=== PATIENT | female | born 1940 | race Caucasian/White ===

== ENCOUNTER 2017-02-24 12:02 | Inpatient (IN) | payer MEDICARE, MEDICAID ==
[~2017-02-24] VITALS: Ht 157.5 cm; Wt 68.0 kg
[2017-02-24 13:00] LABS: BASOPHILS % 0.8 % (0.0-2.0); EOSINOPHILS % 1.5 % (0.0-5.0); HEMATOCRIT. 32.1 % (36.0-48.0); HEMOGLOBIN. 10.4 g/dL (12.0-16.0); LYMPHOCYTES % 25.5 % (20.0-50.0); MEAN CORPUSCULAR HEMOGLOBIN 27.5 pg (28.0-32.0); MEAN CORPUSCULAR HGB CONC 32.4 g/dL (31.0-37.0); MEAN CORPUSCULAR VOLUME 84.7 fL (81.0-99.0); MEAN PLATELET VOLUME 7.6 fl (7.4-10.4); MONOCYTES % 6.5 % (2.0-8.0); NEUTROPHILS % 65.7 % (40.0-76.0); PLATELET 213 x1000/uL (130-400); RED BLOOD CELL COUNT 3.79 mill/uL (4.2-5.4); RED CELL DISTRIBUTION WIDTH 14.4 % (11.6-14.6); WHITE BLOOD COUNT 11.5 x1000/uL (4.5-11.0)
[2017-02-24 13:06] LABS: CHLORIDE 104 mEq/L (98-107); INDEX HEMOLYSI 1 (1-3); INDEX ICTERIC 1 (1-4); INDEX LIPEMIC 1 (1-3)
[2017-02-24 13:07] LABS: PROTHROMBIN TIME 10.8 sec
[2017-02-24 13:14] LABS: ALANINE AMINOTRANSFERASE 20 IU/L (13-61); ALBUMIN 2.2 g/dL (3.4-5.0); ANION GAP 13; CALCIUM 8.3 mg/dL (8.5-10.1); CARBON DIOXIDE 28 mEq/L (21-32); UREA NITROGEN BLOOD 23 mg/dL (7-21); eGFR 32 mL/min (>60)
[2017-02-24] MEDS ORDERED: SODIUM CHLORIDE 0.9% 1,000 ML IV ONE (14:00)
[2017-02-24] MEDS ORDERED: DEXTROSE 50% WATER 50ML SYRINGE IV PRN (17:45)
[2017-02-24] MEDS ORDERED: NITROGLYCERIN 0.4MG TABLET SL SL PRN (17:45)
[2017-02-24] MEDS ORDERED: ACETAMINOPHEN 325MG TABLET PO PRN (17:45)
[2017-02-24] MEDS ORDERED: ZOLPIDEM TARTRATE 5MG TABLET PO PRN (17:45)
[2017-02-24] MEDS ORDERED: ONDANSETRON HCL 4MG/2ML VIAL IV PRN (17:45)
[2017-02-24] MEDS ORDERED: GUAIFENESIN 200MG/10ML SUGAR FREE UDC PO PRN (17:45)
[2017-02-24] MEDS ORDERED: MAGNESIUM/ALUMINUM HYDROXIDE/SIMETHICONE 30ML UDC PO PRN (17:45)
[2017-02-24] MEDS ORDERED: IPRATROPIUM/ALBUTEROL 0.5-3(2.5)MG/3ML NEB INH PRN (19:13)
[2017-02-24] MEDS ORDERED: NA PHOS,M-B/NA PHOS,DI-BA ENEMA 118ML PR PRN (19:14)
[2017-02-24] MEDS ORDERED: LEVOFLOXACIN 500MG PREMIX 100 ML IV SCH (20:30)
[2017-02-24] MEDS: INSULIN LISPRO 100 UNITS/ML SUBCUT SCH ×2 (20:32→23:07)
[2017-02-24] MEDS: BLOOD SUGAR DIAGNOSTIC STRIP TEST SCH (21:00)
[2017-02-24 21:05] LABS: T4 FREE 1.06 ng/dL (0.76-1.46)
[2017-02-24 21:07] LABS: THYROID STIMULATING HORMONE 4.4 uIU/mL (0.36-3.74)
[2017-02-24 21:20] VITALS: BP_SYST 167; BP_SYST 179; BP_DIAS 75
[2017-02-24] MEDS: SODIUM CHLORIDE 0.9% 1,000 ML IV SCH (23:05)
[2017-02-25] VITALS: BP 184/77
[2017-02-25 03:10] LABS: CREATINE KINASE 67 IU/L (26-192); CREATINE KINASE MB FRACTION 1.8 ng/mL (0.5-3.6); TROPONIN I < 0.02 ng/mL (0.00-0.04)
[2017-02-25 04:00] VITALS: BP 178/79
[2017-02-25 04:19] LABS: CLARITY URINE CLEAR (CLEAR); COLOR URINE YELLOW (YELLOW); GLUCOSE URINE TRACE (NEGATIVE); KETONES URINE NEGATIVE (NEGATIVE); LEUKOCYTE ESTERASE URINE NEGATIVE (NEGATIVE); NITRITE URINE NEGATIVE (NEGATIVE); OCCULT BLOOD URINE NEGATIVE (NEGATIVE); PH URINE 7.5 (4.5-8.0); PROTEIN URINE 3+ (NEGATIVE); SPECIFIC GRAVITY URINE 1.009 (1.005-1.030); UROBILINOGEN URINE 0.2 E.U./dL (0.2-1.0)
[2017-02-25] MEDS: CLONIDINE 0.1MG TABLET PO PRN ×3 (05:08→21:20)
[2017-02-25 05:48] LABS: BACTERIA URINE NONE SEEN; RBC URINE NONE SEEN /hpf (0-2); SQUAMOUS EPITHELIAL CELL URINE NONE SEEN /lpf (RARE/1+); WBC URINE 0-2 /hpf (0-2)
[2017-02-25] MEDS: BLOOD SUGAR DIAGNOSTIC STRIP TEST SCH ×4 (06:16→20:14)
[2017-02-25] MEDS: INSULIN LISPRO 100 UNITS/ML SUBCUT SCH ×4 (06:18→21:24)
[2017-02-25 08:00] VITALS: BP 152/68
[2017-02-25 08:19] LABS: CREATINE KINASE 63 IU/L (26-192); INDEX HEMOLYSI 1 (1-3); TROPONIN I < 0.02 ng/mL (0.00-0.04)
[2017-02-25] MEDS: ASPIRIN 325MG EC TABLET PO SCH (09:25)
[2017-02-25] MEDS: PANTOPRAZOLE SODIUM 40 MG/VIAL IV SCH (09:25)
[2017-02-25] MEDS: ENOXAPARIN 30MG/0.3ML SYR SUBCUT SCH (09:26)
[2017-02-25] MEDS: SODIUM CHLORIDE 0.9% 1,000 ML IV SCH (11:30)
[2017-02-25 11:38] VITALS: BP 168/68
[2017-02-25 13:00] LABS: HEMATOCRIT. 32.8 % (36.0-48.0); HEMOGLOBIN. 10.7 g/dL (12.0-16.0); MEAN CORPUSCULAR HEMOGLOBIN 27.6 pg (28.0-32.0); MEAN CORPUSCULAR HGB CONC 32.6 g/dL (31.0-37.0); MEAN CORPUSCULAR VOLUME 84.5 fL (81.0-99.0); MEAN PLATELET VOLUME 8.3 fl (7.4-10.4); PLATELET 207 x1000/uL (130-400); RED BLOOD CELL COUNT 3.88 mill/uL (4.2-5.4); RED CELL DISTRIBUTION WIDTH 14.9 % (11.6-14.6); WHITE BLOOD COUNT 8.9 x1000/uL (4.5-11.0)
[2017-02-25 13:03] LABS: DIFFERENTIAL COMMENT 1
[2017-02-25 14:28] LABS: ALANINE AMINOTRANSFERASE 22 IU/L (13-61); ALBUMIN 2.2 g/dL (3.4-5.0); ANION GAP 13; CALCIUM 8.4 mg/dL (8.5-10.1); CARBON DIOXIDE 26 mEq/L (21-32); CHLORIDE 102 mEq/L (98-107); INDEX HEMOLYSI 1 (1-3); INDEX ICTERIC 1 (1-4); INDEX LIPEMIC 1 (1-3); UREA NITROGEN BLOOD 21 mg/dL (7-21); eGFR 37 mL/min (>60)
[2017-02-25 15:51] VITALS: BP 164/67
[2017-02-25 16:21] LABS: FOLIC ACID (FOLATE) SERUM 19.4 ng/mL (>5.38)
[2017-02-25 16:50] LABS: PLATELET ESTIMATE NORMAL
[2017-02-25 20:00] VITALS: BP 188/74
[2017-02-25] MEDS ORDERED: LEVOFLOXACIN 250MG PREMIX 50 ML IV SCH (21:00)
[2017-02-25] MEDS: ATORVASTATIN CALCIUM 20MG TABLET PO SCH (21:19)
[2017-02-25] MEDS: LEVOFLOXACIN 250MG PREMIX 50 ML IV SCH (22:00)
[2017-02-26] VITALS: BP 169/77
[2017-02-26 04:00] VITALS: BP 170/81
[2017-02-26] MEDS: CLONIDINE 0.1MG TABLET PO PRN ×2 (04:32→12:32)
[2017-02-26] MEDS: TRAMADOL 50MG TABLET PO PRN ×3 (04:35→20:29)
[2017-02-26] MEDS: BLOOD SUGAR DIAGNOSTIC STRIP TEST SCH ×4 (05:56→20:21)
[2017-02-26] MEDS: INSULIN LISPRO 100 UNITS/ML SUBCUT SCH ×4 (06:27→20:21)
[2017-02-26 08:00] VITALS: BP 180/71
[2017-02-26] MEDS: PANTOPRAZOLE SODIUM 40 MG/VIAL IV SCH (08:48)
[2017-02-26] MEDS: ENOXAPARIN 30MG/0.3ML SYR SUBCUT SCH (08:48)
[2017-02-26] MEDS: ASPIRIN 325MG EC TABLET PO SCH (08:48)
[2017-02-26] MEDS: AMLODIPINE 10MG TABLET PO SCH (09:51)
[2017-02-26] MEDS: INSULIN DETEMIR UD 100 UNITS/ML SYR SUBCUT SCH (11:08)
[2017-02-26 12:00] VITALS: BP 169/69
[2017-02-26 16:20] VITALS: BP 109/60
[2017-02-26 20:00] VITALS: BP 122/59
[2017-02-26] MEDS: ATORVASTATIN CALCIUM 20MG TABLET PO SCH (20:28)
[2017-02-26] MEDS: LEVOFLOXACIN 250MG PREMIX 50 ML IV SCH (22:18)
[2017-02-27] VITALS: BP 124/59
[2017-02-27 04:00] VITALS: BP 137/59
[2017-02-27] MEDS: BLOOD SUGAR DIAGNOSTIC STRIP TEST SCH ×2 (07:19→12:28)
[2017-02-27] MEDS: INSULIN LISPRO 100 UNITS/ML SUBCUT SCH ×2 (07:19→12:35)
[2017-02-27 07:33] VITALS: BP 144/61
[2017-02-27] MEDS: ASPIRIN 325MG EC TABLET PO SCH (08:53)
[2017-02-27] MEDS: AMLODIPINE 10MG TABLET PO SCH (08:53)
[2017-02-27] MEDS: ENOXAPARIN 30MG/0.3ML SYR SUBCUT SCH (08:54)
[2017-02-27] MEDS ORDERED: FAMOTIDINE 20MG TABLET PO SCH (09:00)
[2017-02-27 10:42] VITALS: BP 130/65
[2017-02-27] MEDS: INSULIN DETEMIR UD 100 UNITS/ML SYR SUBCUT SCH (10:49)
[2017-02-27] MEDS ORDERED: LEVOFLOXACIN 250MG TABLET PO SCH (11:00)
[2017-02-27 11:56] VITALS: BP 151/62
== END 2017-02-27 14:00 | disposition home or self-care (01) | DRG 70 ==
LOC: ER 12:06 → SUPCPDRO 16:14 → 8WST 16:16
PROVIDERS: ADMIT Internal Medicine; ATTEND Internal Medicine
DX: G93.40 Encephalopathy, unspecified (principal); N17.0 Acute kidney failure with tubular necrosis; E43 Unspecified severe protein-calorie malnutrition; D63.8 Anemia in other chronic diseases classified elsewhere; E03.9 Hypothyroidism, unspecified; E11.9 Type 2 diabetes mellitus without complications; E78.00 Pure hypercholesterolemia, unspecified; E86.0 Dehydration; I10 Essential (primary) hypertension; Z79.4 Long term (current) use of insulin; Z68.27 Body mass index [BMI] 27.0-27.9, adult
CPT/HCPCS: 36415; 70450; 71010; 80053; 80061; 81001; 82550; 82553; 82607; 82746; 82962; 83036; 83540; 83550; 83605; 84439; 84443; 84484; 85025; 85610; 87070; 87086; 87205; 93005; 93306; 93970; 96361; 96372; 96374; 97116; 97162; 99285; C1893; C9113; J1650; J1815; J1956; J7030

== ENCOUNTER 2017-05-28 16:47 | Inpatient (IN) | payer MEDICARE, MEDICAID ==
[~2017-05-28] VITALS: Ht 154.9 cm; Wt 72.6 kg
[2017-05-28 18:59] LABS: BASOPHILS % 0.7 % (0.0-2.0); EOSINOPHILS % 3.1 % (0.0-5.0); HEMOGLOBIN. 10.2 g/dL (12.0-16.0); LYMPHOCYTES % 36.1 % (20.0-50.0); MEAN CORPUSCULAR HEMOGLOBIN 26.8 pg (28.0-32.0); MEAN CORPUSCULAR VOLUME 83.6 fL (81.0-99.0); MEAN PLATELET VOLUME 7.9 fl (7.4-10.4); MONOCYTES % 7.1 % (2.0-8.0); PLATELET 229 x1000/uL (130-400); RED BLOOD CELL COUNT 3.83 mill/uL (4.2-5.4)
[2017-05-28 19:07] LABS: PARTIAL THROMBOPLASTIN TIME 31.3 sec (24.0-34.0); PROTHROMBIN TIME 10.4 sec
[2017-05-28 19:15] LABS: CARBON DIOXIDE 26 mEq/L (21-32); CHLORIDE 102 mEq/L (98-107); TROPONIN I < 0.02 ng/mL (0.00-0.04)
[2017-05-28] MEDS ORDERED: INSULIN REGULAR (HUMULIN R) 300UNITS/3ML SUBCUT NR (21:30)
[2017-05-28] MEDS ORDERED: NA PHOS,M-B/NA PHOS,DI-BA ENEMA 118ML PR PRN (23:15)
[2017-05-28] MEDS ORDERED: GUAIFENESIN 200MG/10ML SUGAR FREE UDC PO PRN (23:15)
[2017-05-28] MEDS ORDERED: DIPHENHYDRAMINE 50MG/ML VIAL IV PRN (23:15)
[2017-05-28] MEDS ORDERED: ONDANSETRON HCL 4MG/2ML VIAL IV PRN (23:15)
[2017-05-28] MEDS ORDERED: HYDROMORPHONE HCL/PF 2MG/ML CPJ IV PRN (23:15)
[2017-05-28] MEDS ORDERED: IPRATROPIUM/ALBUTEROL 0.5-3(2.5)MG/3ML NEB INH PRN (23:15)
[2017-05-28] MEDS ORDERED: LORAZEPAM 2MG/ML CPJ IV PRN (23:15)
[2017-05-28] MEDS ORDERED: ACETAMINOPHEN 325MG TABLET PO PRN (23:15)
[2017-05-28] MEDS ORDERED: MAGNESIUM/ALUMINUM HYDROXIDE/SIMETHICONE 30ML UDC PO PRN (23:15)
[2017-05-29] MEDS: CLONIDINE 0.1MG TABLET PO PRN ×2 (03:22→21:34)
[2017-05-29] MEDS ORDERED: DEXTROSE 50% WATER 50ML SYRINGE IV PRN (04:15)
[2017-05-29] MEDS ORDERED: SODIUM CHLORIDE 0.45% 1,000 ML IV SCH (04:16)
[2017-05-29 04:25] VITALS: BP 186/73
[2017-05-29 04:32] VITALS: BP 186/73
[2017-05-29] MEDS: HYDROCODONE/ACETAMINOPHEN 5/325MG TABLET PO PRN ×2 (04:37→09:02)
[2017-05-29 06:43] LABS: BASOPHILS % 0.5 % (0.0-2.0); EOSINOPHILS % 2.9 % (0.0-5.0); HEMATOCRIT. 31.8 % (36.0-48.0); HEMOGLOBIN. 10.5 g/dL (12.0-16.0); LYMPHOCYTES % 35.8 % (20.0-50.0); MEAN CORPUSCULAR HEMOGLOBIN 27.2 pg (28.0-32.0); MEAN CORPUSCULAR VOLUME 82.5 fL (81.0-99.0); MEAN PLATELET VOLUME 7.9 fl (7.4-10.4); MONOCYTES % 8.7 % (2.0-8.0); NEUTROPHILS % 52.1 % (40.0-76.0); PLATELET 242 x1000/uL (130-400); RED BLOOD CELL COUNT 3.86 mill/uL (4.2-5.4); RED CELL DISTRIBUTION WIDTH 15.6 % (11.6-14.6)
[2017-05-29 07:14] LABS: CHLORIDE 102 mEq/L (98-107)
[2017-05-29 07:30] LABS: CARBON DIOXIDE 27 mEq/L (21-32); HDL CHOLESTEROL 35 mg/dL (40-59); LDL CHOLESTEROL 141 mg/dL (5-100); T4 FREE 1.06 ng/dL (0.76-1.46); TROPONIN I < 0.02 ng/mL (0.00-0.04)
[2017-05-29 08:00] VITALS: BP 146/80
[2017-05-29] MEDS: BLOOD SUGAR DIAGNOSTIC STRIP TEST SCH ×4 (08:14→21:34)
[2017-05-29] MEDS ORDERED: SODIUM CHLORIDE 0.9% 1,000 ML IV SCH (09:00)
[2017-05-29] MEDS: ENOXAPARIN 40MG/0.4ML SYR SUBCUT SCH (09:00)
[2017-05-29] MEDS: DOCUSATE SODIUM 100MG CAPSULE PO PRN (09:01)
[2017-05-29] MEDS: ASPIRIN 81MG EC TABLET PO SCH (09:01)
[2017-05-29] MEDS: INSULIN LISPRO 100 UNITS/ML SUBCUT SCH ×4 (09:04→21:47)
[2017-05-29 10:04] LABS: T4 FREE 1.05 ng/dL (0.76-1.46)
[2017-05-29 12:00] VITALS: BP 145/60
[2017-05-29 15:38] LABS: CREATINE KINASE 53 IU/L (26-192); TROPONIN I < 0.02 ng/mL (0.00-0.04)
[2017-05-29 16:00] VITALS: BP 165/83
[2017-05-29 20:00] VITALS: BP 168/75
[2017-05-29 23:18] LABS: CREATINE KINASE MB FRACTION 1.4 ng/mL (0.5-3.6)
[2017-05-29] MEDS: SODIUM CHLORIDE 0.9% 1,000 ML IV SCH (23:31)
[2017-05-30] VITALS: BP 182/78
[2017-05-30] MEDS: BENAZEPRIL 10MG TABLET PO SCH ×3 (01:01→18:32)
[2017-05-30 04:00] VITALS: BP 186/66
[2017-05-30] MEDS: SODIUM CHLORIDE 0.9% 1,000 ML IV SCH (05:52)
[2017-05-30 06:27] LABS: BASOPHILS % 0.9 % (0.0-2.0); EOSINOPHILS % 2.7 % (0.0-5.0); HEMOGLOBIN. 10.7 g/dL (12.0-16.0); LYMPHOCYTES % 33.4 % (20.0-50.0); MEAN CORPUSCULAR HEMOGLOBIN 26.9 pg (28.0-32.0); MEAN CORPUSCULAR VOLUME 82.6 fL (81.0-99.0); MEAN PLATELET VOLUME 7.9 fl (7.4-10.4); MONOCYTES % 7.7 % (2.0-8.0); NEUTROPHILS % 55.3 % (40.0-76.0); PLATELET 232 x1000/uL (130-400); RED CELL DISTRIBUTION WIDTH 16.1 % (11.6-14.6)
[2017-05-30] MEDS: BLOOD SUGAR DIAGNOSTIC STRIP TEST SCH ×4 (06:28→20:42)
[2017-05-30] MEDS: CLONIDINE 0.1MG TABLET PO PRN ×2 (06:28→11:45)
[2017-05-30 06:58] LABS: CLARITY URINE CLEAR (CLEAR); COLOR URINE YELLOW (YELLOW); GLUCOSE URINE 1+ (NEGATIVE); KETONES URINE NEGATIVE (NEGATIVE); LEUKOCYTE ESTERASE URINE NEGATIVE (NEGATIVE); NITRITE URINE NEGATIVE (NEGATIVE); OCCULT BLOOD URINE NEGATIVE (NEGATIVE); PROTEIN URINE 3+ (NEGATIVE); UROBILINOGEN URINE 0.2 E.U./dL (0.2-1.0)
[2017-05-30 07:28] LABS: CARBON DIOXIDE 26 mEq/L (21-32); CHLORIDE 102 mEq/L (98-107)
[2017-05-30 07:34] LABS: CREATINE KINASE 41 IU/L (26-192); CREATINE KINASE MB FRACTION 0.8 ng/mL (0.5-3.6)
[2017-05-30 08:00] VITALS: BP 175/70
[2017-05-30] MEDS: ASPIRIN 81MG EC TABLET PO SCH (08:34)
[2017-05-30] MEDS: ENOXAPARIN 40MG/0.4ML SYR SUBCUT SCH (08:35)
[2017-05-30] MEDS: INSULIN LISPRO 100 UNITS/ML SUBCUT SCH ×4 (08:36→20:54)
[2017-05-30] MEDS ORDERED: BENAZEPRIL 10MG TABLET PO SCH (09:00)
[2017-05-30 11:59] VITALS: BP 199/77
[2017-05-30 16:00] VITALS: BP 191/72
[2017-05-30] MEDS: HYDRALAZINE HCL 50MG TABLET PO SCH ×2 (18:28→20:49)
[2017-05-30 20:00] VITALS: BP 167/76
[2017-05-30] MEDS: DOCUSATE SODIUM 100MG CAPSULE PO PRN (20:41)
[2017-05-30] MEDS: HYDROCODONE/ACETAMINOPHEN 5/325MG TABLET PO PRN (20:41)
[2017-05-30] MEDS: CLONIDINE 0.3MG TABLET PO PRN (20:52)
[2017-05-31] VITALS (7 sets, daily range): BP systolic 141–182; BP diastolic 58–81
[2017-05-31] MEDS: HYDRALAZINE HCL 50MG TABLET PO SCH ×3 (06:04→21:07)
[2017-05-31] MEDS: BLOOD SUGAR DIAGNOSTIC STRIP TEST SCH ×4 (06:05→21:07)
[2017-05-31 08:05] LABS: BASOPHILS % 0.7 % (0.0-2.0); EOSINOPHILS % 2.7 % (0.0-5.0); HEMATOCRIT. 31.6 % (36.0-48.0); HEMOGLOBIN. 10.5 g/dL (12.0-16.0); LYMPHOCYTES % 34.5 % (20.0-50.0); MEAN CORPUSCULAR HEMOGLOBIN 27.3 pg (28.0-32.0); MEAN PLATELET VOLUME 8.3 fl (7.4-10.4); NEUTROPHILS % 54.1 % (40.0-76.0); PLATELET 210 x1000/uL (130-400); RED BLOOD CELL COUNT 3.85 mill/uL (4.2-5.4); RED CELL DISTRIBUTION WIDTH 15.5 % (11.6-14.6)
[2017-05-31] MEDS: INSULIN LISPRO 100 UNITS/ML SUBCUT SCH ×4 (08:41→21:15)
[2017-05-31] MEDS: BENAZEPRIL 10MG TABLET PO SCH ×2 (08:42→16:58)
[2017-05-31] MEDS: ASPIRIN 81MG EC TABLET PO SCH (08:42)
[2017-05-31] MEDS: ENOXAPARIN 40MG/0.4ML SYR SUBCUT SCH (08:43)
[2017-05-31] MEDS ORDERED: LORAZEPAM 1MG TABLET PO NR (14:15)
[2017-05-31] MEDS: SODIUM CHLORIDE 0.9% 1,000 ML IV SCH (21:07)
[2017-06-01] VITALS: BP 168/67
[2017-06-01] MEDS: CLONIDINE 0.3MG TABLET PO PRN (01:23)
[2017-06-01] MEDS ORDERED: INSULIN DETEMIR UD 100 UNITS/ML SYR SUBCUT NR (01:30)
[2017-06-01 04:00] VITALS: BP 178/95
[2017-06-01] MEDS: HYDRALAZINE HCL 50MG TABLET PO SCH ×2 (05:52→14:55)
[2017-06-01] MEDS: BLOOD SUGAR DIAGNOSTIC STRIP TEST SCH ×2 (06:01→12:40)
[2017-06-01 08:00] VITALS: BP 150/57
[2017-06-01] MEDS: ASPIRIN 81MG EC TABLET PO SCH (08:46)
[2017-06-01] MEDS: ENOXAPARIN 40MG/0.4ML SYR SUBCUT SCH (08:46)
[2017-06-01] MEDS: INSULIN LISPRO 100 UNITS/ML SUBCUT SCH ×2 (08:53→13:10)
[2017-06-01] MEDS ORDERED: BENAZEPRIL 10MG TABLET PO SCH (09:00)
[2017-06-01 12:00] VITALS: BP 147/66
[2017-06-01 13:30] VITALS: BP 145/61
[2017-06-01] MEDS ORDERED: INSULIN DETEMIR UD 100 UNITS/ML SYR SUBCUT SCH (22:00)
== END 2017-06-01 15:09 | disposition home or self-care (01) | DRG 682 ==
LOC: ER 17:08 → 7WST 23:08 → EDBEDREQ 23:11 → EDBEDREQTM 23:11 → ENRESERV 05-29 02:26
PROVIDERS: ADMIT Internal Medicine; ATTEND Internal Medicine
DX: N17.0 Acute kidney failure with tubular necrosis (principal); G93.41 Metabolic encephalopathy; I13.0 Hypertensive heart and chronic kidney disease with heart failure and stage 1 through stage 4 chronic kidney disease, or unspecified chronic kidney disease; R55 Syncope and collapse; I50.9 Heart failure, unspecified; E86.0 Dehydration; E11.65 Type 2 diabetes mellitus with hyperglycemia; D64.9 Anemia, unspecified; E66.9 Obesity, unspecified; E03.9 Hypothyroidism, unspecified; E11.22 Type 2 diabetes mellitus with diabetic chronic kidney disease; E78.00 Pure hypercholesterolemia, unspecified; E78.5 Hyperlipidemia, unspecified; N18.9 Chronic kidney disease, unspecified; M19.90 Unspecified osteoarthritis, unspecified site; E11.42 Type 2 diabetes mellitus with diabetic polyneuropathy; E11.21 Type 2 diabetes mellitus with diabetic nephropathy; Z68.30 Body mass index [BMI] 30.0-30.9, adult
CPT/HCPCS: 36415; 70450; 71010; 76770; 80048; 80053; 80061; 81001; 82550; 82553; 82962; 83036; 83880; 84439; 84443; 84484; 85025; 85379; 85610; 85730; 93005; 93306; 93970; 97162; 97166; 99285; J1650; J1815; J7030

== ENCOUNTER 2018-05-07 19:45 | Inpatient (IN) | payer MEDICARE, MEDICAID ==
[~2018-05-07] VITALS: Ht 147.3 cm; Wt 70.8 kg
[2018-05-07] MEDS ORDERED: ONDANSETRON HCL 4MG/2ML VIAL IV STA (20:04)
[2018-05-07] MEDS ORDERED: MORPHINE SULFATE 4 MG/ML CPJ (NOT FOR IM USE) IV STA (20:04)
[2018-05-07 20:39] LABS: CHLORIDE 86 mEq/L (98-107)
[2018-05-07 20:43] LABS: BASOPHILS % 0.1 % (0.0-2.0); HEMOGLOBIN. 10.5 g/dL (12.0-16.0); MEAN CORPUSCULAR HEMOGLOBIN 28.2 pg (28.0-32.0); MEAN CORPUSCULAR VOLUME 91.8 fL (81.0-99.0); MEAN PLATELET VOLUME 8.8 fl (7.4-10.4); MONOCYTES % 3.8 % (2.0-8.0); NEUTROPHILS % 86.1 % (40.0-76.0); PLATELET 229 x1000/uL (130-400); RED BLOOD CELL COUNT 3.71 mill/uL (4.2-5.4); RED CELL DISTRIBUTION WIDTH 19.3 % (11.6-14.6)
[2018-05-07 20:48] LABS: PROTHROMBIN TIME 10.7 sec (9.4-11.6)
[2018-05-07] MEDS ORDERED: INSULIN REGULAR (DRIP) 100 UNITS in SODIUM CHLORIDE 0.9% 100 ML IV NR (21:30)
[2018-05-07 21:47] LABS: BG BASE EXCESS -5.8 mmol/L (-2.0-2.0); BG CARBOXYHEMOGLOBIN 0.5 % (0.5-1.5); BG DEOXYHEMOGLOBIN 4.3 % (0.0-5.0); BG FRACTION INSPIRED OXYGEN 21; BG METHEMOGLOBIN 0.2 % (0.0-1.5); BG OXYGEN SATURATION 95.7 % (92.0-98.5); BG PCO2 29.8 mmHg (35.0-45.0); BG PH 7.398 (7.350-7.450); BG SAMPLE SITE RIGHT BRACHIAL; BG TOTAL HEMOGLOBIN 11.6 g/dL (12.0-18.0); BG VENT MODE ROOM AIR
[2018-05-07] MEDS ORDERED: SODIUM CHLORIDE 0.9% 1,000 ML IV ONE ×2 (21:57→22:03)
[2018-05-07] MEDS ORDERED: PIPERACILLIN/TAZ 3.375G PREMIX 50 ML IV ONE (22:00)
[2018-05-07] MEDS ORDERED: FENTANYL CITRATE/PF 50MCG/ML 2ML VIAL ONE (22:53)
[2018-05-07] MEDS ORDERED: ROCURONIUM BROMIDE 10MG/ML VIAL 5ML IV ONE (22:53)
[2018-05-07] MEDS ORDERED: PROPOFOL 200MG/20ML VIAL IV ONE (22:53)
[2018-05-07] MEDS ORDERED: PHENYLEPHRINE HCL 10 MG/ML 1ML (IV VIAL) IV ONE (23:02)
[2018-05-07] MEDS ORDERED: MIDAZOLAM HCL 2 MG/2 ML VIAL ONE (23:13)
[2018-05-07] MEDS ORDERED: MORPHINE SULFATE 4 MG/ML CPJ (NOT FOR IM USE) IV PRN (23:15)
[2018-05-08] VITALS (81 sets, daily range): BP systolic 37–149; BP diastolic 22–110
[2018-05-08] MEDS ORDERED: ROCURONIUM BROMIDE 10MG/ML VIAL 5ML IV ONE (00:10)
[2018-05-08] MEDS ORDERED: SKIN ADHESIVE 0.7 GM EA TOP ONE ×2 (00:27→00:30)
[2018-05-08 00:43] LABS: PHOSPHORUS 3.8 mg/dL (2.5-4.9)
[2018-05-08] MEDS ORDERED: PROPOFOL 10MG/ML 100ML 100 ML IV SCH (01:15)
[2018-05-08 01:56] LABS: BG BASE EXCESS -14.5 mmol/L (-2.0-2.0); BG CARBOXYHEMOGLOBIN 0.3 % (0.5-1.5); BG DEOXYHEMOGLOBIN 0.4 % (0.0-5.0); BG FRACTION INSPIRED OXYGEN 100; BG HCO3 ACT 10.9 mmol/L (22.0-26.0); BG METHEMOGLOBIN 0.3 % (0.0-1.5); BG OXYGEN SATURATION 99.6 % (92.0-98.5); BG PCO2 24.2 mmHg (35.0-45.0); BG PO2 515.9 mmHg (75.0-100.0); BG SAMPLE SITE A-LINE; BG TIDAL VOLUME(mL) 500 mL; BG TOTAL HEMOGLOBIN 9.8 g/dL (12.0-18.0); BG VENT MODE VENT - A/C; BG VENT RATE 12 set
[2018-05-08] MEDS ORDERED: SODIUM BICARBONATE 8.4% 1 MEQ/ML 50ML SYR IV NR (02:15)
[2018-05-08] MEDS ORDERED: INSULIN REGULAR (DRIP) 100 UNITS in SODIUM CHLORIDE 0.9% 99 ML IV PRN (03:15)
[2018-05-08 03:51] LABS: PHOSPHORUS 3.9 mg/dL (2.5-4.9)
[2018-05-08] MEDS ORDERED: BLOOD SUGAR DIAGNOSTIC STRIP TEST SCH (04:15)
[2018-05-08] MEDS ORDERED: DEXTROSE 50% WATER 50ML SYRINGE IV PRN ×2 (04:15)
[2018-05-08] MEDS ORDERED: ONDANSETRON HCL 4MG/2ML VIAL IV PRN (04:45)
[2018-05-08] MEDS ORDERED: HYDROMORPHONE HCL/PF 2MG/ML CPJ IV PRN (04:45)
[2018-05-08] MEDS: DEXT 5%/0.9% NACL 1,000 ML IV SCH ×2 (05:02→20:19)
[2018-05-08 07:00] LABS: BASOPHILS % 0.3 % (0.0-2.0); HEMATOCRIT. 30.1 % (36.0-48.0); HEMOGLOBIN. 9.7 g/dL (12.0-16.0); LYMPHOCYTES % 15.3 % (20.0-50.0); MEAN CORPUSCULAR HEMOGLOBIN 28.5 pg (28.0-32.0); MEAN PLATELET VOLUME 8.6 fl (7.4-10.4); MONOCYTES % 3.1 % (2.0-8.0); NEUTROPHILS % 81.3 % (40.0-76.0); PLATELET 221 x1000/uL (130-400); RED BLOOD CELL COUNT 3.39 mill/uL (4.2-5.4); RED CELL DISTRIBUTION WIDTH 18.6 % (11.6-14.6)
[2018-05-08] MEDS ORDERED: PIPERACILLIN/TAZ 3.375G PREMIX 50 ML IV SCH (07:30)
[2018-05-08] MEDS: BLOOD SUGAR DIAGNOSTIC STRIP TEST SCH ×16 (08:00→23:00)
[2018-05-08] MEDS ORDERED: LIDOCAINE HCL/PF 1% 10 MG/ML 5ML VIAL ONE (09:05)
[2018-05-08] MEDS: INSULIN REGULAR (DRIP) 100 UNITS in SODIUM CHLORIDE 0.9% 100 ML IV SCH ×2 (09:22→12:53)
[2018-05-08] MEDS ORDERED: SODIUM CHLORIDE 0.9% 250 ML IV SCH (09:30)
[2018-05-08] MEDS: PIPERACILLIN/TAZ 2.25G PREMIX 50 ML IV SCH ×3 (10:28→20:17)
[2018-05-08] MEDS: PANTOPRAZOLE SODIUM 40 MG/VIAL IV SCH (10:28)
[2018-05-08 12:33] LABS: BG BASE EXCESS -10.2 mmol/L (-2.0-2.0); BG CARBOXYHEMOGLOBIN 0.3 % (0.5-1.5); BG DEOXYHEMOGLOBIN 1.1 % (0.0-5.0); BG FRACTION INSPIRED OXYGEN 40; BG HCO3 ACT 13.7 mmol/L (22.0-26.0); BG METHEMOGLOBIN 0.2 % (0.0-1.5); BG OXYGEN SATURATION 98.9 % (92.0-98.5); BG OXYHEMOGLOBIN 98.4 % (94.0-97.0); BG PCO2 24.5 mmHg (35.0-45.0); BG PH 7.365 (7.350-7.450); BG PO2 172.1 mmHg (75.0-100.0); BG SAMPLE SITE A-LINE; BG TIDAL VOLUME(mL) 500 mL; BG TOTAL HEMOGLOBIN 9.8 g/dL (12.0-18.0); BG VENT MODE VENT - A/C; BG VENT RATE 12 set
[2018-05-08 20:14] LABS: T4 FREE 1.25 ng/dL (0.76-1.46)
[2018-05-09] VITALS (105 sets, daily range): BP systolic 31–216; BP diastolic 16–88
[2018-05-09] MEDS: NOREPINEPHRINE 8 MG in DEXT 5% WATER 242 ML IV PRN ×2 (00:13→07:31)
[2018-05-09] MEDS: BLOOD SUGAR DIAGNOSTIC STRIP TEST SCH ×8 (01:00→11:10)
[2018-05-09] MEDS: PIPERACILLIN/TAZ 2.25G PREMIX 50 ML IV SCH ×3 (03:26→16:42)
[2018-05-09] MEDS: PHENYLEPHRINE 40 MG in DEXT 5% WATER 246 ML IV PRN ×4 (05:34→17:30)
[2018-05-09 05:53] LABS: BASOPHILS % 0.2 % (0.0-2.0); EOSINOPHILS % 0.1 % (0.0-5.0); HEMATOCRIT. 31.6 % (36.0-48.0); HEMOGLOBIN. 9.9 g/dL (12.0-16.0); LYMPHOCYTES % 22.4 % (20.0-50.0); MEAN CORPUSCULAR HEMOGLOBIN 28.1 pg (28.0-32.0); MEAN CORPUSCULAR VOLUME 89.7 fL (81.0-99.0); MEAN PLATELET VOLUME 9.2 fl (7.4-10.4); MONOCYTES % 0.9 % (2.0-8.0); NEUTROPHILS % 76.4 % (40.0-76.0); PLATELET 163 x1000/uL (130-400); RED BLOOD CELL COUNT 3.52 mill/uL (4.2-5.4); RED CELL DISTRIBUTION WIDTH 18.8 % (11.6-14.6)
[2018-05-09 06:18] LABS: CHLORIDE 106 mEq/L (98-107)
[2018-05-09 06:29] LABS: BETA HYDROXYBUTYRATE 0.2 mMol/L (0.0-0.3)
[2018-05-09] MEDS ORDERED: ALBUTEROL (0.083%) 2.5MG/3ML NEB ONE (08:07)
[2018-05-09] MEDS ORDERED: NOREPINEPHRINE 32 MG in DEXT 5% WATER 468 ML IV PRN (08:30)
[2018-05-09 09:00] LABS: BG BASE EXCESS -19.6 mmol/L (-2.0-2.0); BG CARBOXYHEMOGLOBIN 0.3 % (0.5-1.5); BG DEOXYHEMOGLOBIN 0.5 % (0.0-5.0); BG FRACTION INSPIRED OXYGEN 100; BG HCO3 ACT 7.4 mmol/L (22.0-26.0); BG METHEMOGLOBIN 0.2 % (0.0-1.5); BG OXYGEN SATURATION 99.5 % (92.0-98.5); BG PCO2 21.4 mmHg (35.0-45.0); BG PH 7.155 (7.350-7.450); BG PO2 467.3 mmHg (75.0-100.0); BG SAMPLE SITE LEFT BRACHIAL; BG TIDAL VOLUME(mL) 500 mL; BG TOTAL HEMOGLOBIN 8.8 g/dL (12.0-18.0); BG VENT MODE VENT - A/C; BG VENT RATE 12 set
[2018-05-09] MEDS: DEXT 5%/0.9% NACL 1,000 ML IV SCH (09:36)
[2018-05-09] MEDS: PANTOPRAZOLE SODIUM 40 MG/VIAL IV SCH (09:36)
[2018-05-09] MEDS ORDERED: NACL IV SCH ×2 (09:56→11:00)
[2018-05-09] MEDS ORDERED: DEXT IV SCH ×2 (09:56→11:00)
[2018-05-09] MEDS ORDERED: SODIUM BICARBONATE IV SCH ×2 (09:56→11:00)
[2018-05-09] MEDS: SODIUM BICARBONATE 8.4% 1 MEQ/ML 50ML SYR IV NR ×2 (10:12→11:59)
[2018-05-09] MEDS ORDERED: SODIUM BICARBONATE 8.4% 1 MEQ/ML 50ML SYR IV ONE (10:12)
[2018-05-09 11:41] LABS: BG BASE EXCESS -26.4 mmol/L (-2.0-2.0); BG CARBOXYHEMOGLOBIN 0.3 % (0.5-1.5); BG DEOXYHEMOGLOBIN 0.6 % (0.0-5.0); BG FRACTION INSPIRED OXYGEN 100; BG HCO3 ACT 3.2 mmol/L (22.0-26.0); BG METHEMOGLOBIN 0.4 % (0.0-1.5); BG OXYGEN SATURATION 99.4 % (92.0-98.5); BG OXYHEMOGLOBIN 98.7 % (94.0-97.0); BG PCO2 13.6 mmHg (35.0-45.0); BG PH 6.984 (7.350-7.450); BG PO2 543.1 mmHg (75.0-100.0); BG SAMPLE SITE RIGHT RADIAL; BG TIDAL VOLUME(mL) 500 mL; BG TOTAL HEMOGLOBIN 8.6 g/dL (12.0-18.0); BG VENT MODE VENT - A/C; BG VENT RATE 16 set
[2018-05-09] MEDS ORDERED: SODIUM BICARBONATE 8.4% 1 MEQ/ML 50ML SYR IV NR (11:45)
[2018-05-09] MEDS ORDERED: DEXTROSE 50% WATER 50ML SYRINGE IV PRN (12:30)
[2018-05-09] MEDS ORDERED: SODIUM BICARBONATE 100 MEQ in DEXT 5%/0.9% NACL 1,000 ML IV SCH (14:00)
[2018-05-09] MEDS ORDERED: EPINEPHRINE 0.1MG/ML (1:10,000) 10ML SYR ONE (15:10)
[2018-05-09] MEDS ORDERED: CALCIUM CHLORIDE 1GM/10ML SYR IV ONE (15:10)
[2018-05-09] MEDS ORDERED: SODIUM BICARBONATE 7.5% 0.9 MEQ/ML 50ML SYR IV ONE (15:10)
[2018-05-09] MEDS ORDERED: BLOOD SUGAR DIAGNOSTIC STRIP TEST SCH (16:30)
[2018-05-09] MEDS ORDERED: INSULIN LISPRO 100 UNITS/ML SUBCUT SCH (17:00)
== END 2018-05-09 19:20 | disposition expired | DRG 356 ==
LOC: ER 19:45 → MICUSO 21:53 → EDBEDREQ 21:55 → EDBEDREQSVC 21:55 → EDBEDREQTM 21:55 → ENRESERV 23:36 → MICUSO 05-08 04:49
PROVIDERS: ADMIT Hospitalist; ATTEND Hospitalist
PROC: 02HV33Z Insertion of Infusion Device into Superior Vena Cava, Percutaneous Approach (ICD-10-PCS; 2018-05-08)
PROC: B548ZZA Ultrasonography of Superior Vena Cava, Guidance (ICD-10-PCS; 2018-05-08)
PROC: 0BH17EZ Insertion of Endotracheal Airway into Trachea, Via Natural or Artificial Opening (ICD-10-PCS; 2018-05-08)
PROC: 5A1945Z Respiratory Ventilation, 24-96 Consecutive Hours (ICD-10-PCS; 2018-05-08)
PROC: 0W9F00Z Drainage of Abdominal Wall with Drainage Device, Open Approach (ICD-10-PCS; principal; 2018-05-08 23:00)
DX: K63.1 Perforation of intestine (nontraumatic) (principal); J96.00 Acute respiratory failure, unspecified whether with hypoxia or hypercapnia; E11.10 Type 2 diabetes mellitus with ketoacidosis without coma; G93.1 Anoxic brain damage, not elsewhere classified; I50.32 Chronic diastolic (congestive) heart failure; N17.9 Acute kidney failure, unspecified; R18.8 Other ascites; I13.0 Hypertensive heart and chronic kidney disease with heart failure and stage 1 through stage 4 chronic kidney disease, or unspecified chronic kidney disease; E87.2 Acidosis; C34.90 Malignant neoplasm of unspecified part of unspecified bronchus or lung; C79.51 Secondary malignant neoplasm of bone; C22.0 Liver cell carcinoma; K74.60 Unspecified cirrhosis of liver; K66.8 Other specified disorders of peritoneum; E87.5 Hyperkalemia; E03.9 Hypothyroidism, unspecified; K21.9 Gastro-esophageal reflux disease without esophagitis; N18.9 Chronic kidney disease, unspecified; Z79.4 Long term (current) use of insulin; Z66 Do not resuscitate; E11.22 Type 2 diabetes mellitus with diabetic chronic kidney disease; I46.9 Cardiac arrest, cause unspecified; Z78.1 Physical restraint status; Z90.49 Acquired absence of other specified parts of digestive tract
CPT/HCPCS: 36415; 36569; 36600; 71045; 74176; 76937; 80048; 80053; 82010; 82375; 82805; 82962; 83036; 83605; 83690; 83735; 83880; 84100; 84439; 84443; 84478; 84481; 84484; 85025; 85610; 87070; 87075; 87077; 87186; 87205; 93005; 94002; 94003; C1725; C1769; C9113; J1815; J2250; J2270; J2370; J2405; J2543; J2704; J3010; J3490; J7030; J7042; J7050; J7060; J7611; L3908